=== PATIENT | female | born 1990 | race Caucasian/White ===

== ENCOUNTER 2021-06-28 11:55 | Emergency (ER) | payer OTHER ==
[~2021-06-28] VITALS: Ht 162.6 cm; Wt 74.8 kg
[2021-06-28] MEDS ORDERED: WARFARIN SODIUM4 MG PO (12:50)
== END 2021-06-28 18:14 | disposition home or self-care (01) ==
LOC: ER 11:55
DX: U07.1 COVID-19 (principal); J06.9 Acute upper respiratory infection, unspecified; J98.01 Acute bronchospasm

== ENCOUNTER 2021-07-01 08:48 | Outpatient (CLI) | payer OTHER ==
[~2021-07-01 08:48] MED LIST: WARFARIN SODIUM4 MG PO
== END 2021-07-01 09:30 | disposition home or self-care (01) ==
LOC: ASH CLINIC 08:48
PROVIDERS: ATTEND Emergency Medicine
DX: U07.1 COVID-19 (principal); Z23 Encounter for immunization